=== PATIENT | male | born 1995 | race Two or more races ===

== ENCOUNTER 2019-11-28 15:24 | Emergency (ER) | payer SELFPAY ==
[~2019-11-28] VITALS: Ht 177.8 cm; Wt 72.0 kg
[2019-11-28 15:30] VITALS: BP 133/71
[2019-11-28 18:03] LABS: HEMATOCRIT. 42.3 % (42.0-52.0); HEMOGLOBIN. 14.4 g/dL (14.0-18.0); MEAN CORPUSCULAR HEMOGLOBIN 29.8 pg (28.0-32.0); MEAN CORPUSCULAR VOLUME 87.3 fL (80.0-94.0); PLATELET 303 x1000/uL (130-400); RED BLOOD CELL COUNT 4.85 mill/uL (4.7-6.1)
[2019-11-28 18:05] LABS: CHLORIDE 107 mEq/L (98-107)
[2019-11-28 19:08] LABS: PLATELET ESTIMATE NORMAL
== END 2019-11-28 17:57 | disposition home or self-care (01) ==
LOC: ER 15:24
DX: R53.1 Weakness (principal)
CPT/HCPCS: 36415; 80053; 82962; 84484; 85025; 99283

== ENCOUNTER 2020-06-09 14:59 | Inpatient (IN) | payer MEDICAID ==
[~2020-06-09] VITALS: Ht 160 cm; Wt 54.0 kg
[2020-06-09] MEDS ORDERED: SODIUM CHLORIDE 0.9% 1,000 ML IV ONE (15:30)
[2020-06-09] MEDS ORDERED: KETOROLAC 30MG/ML VIAL IV STA (15:30)
[2020-06-09] MEDS ORDERED: ONDANSETRON HCL 4MG/2ML INJ IV STA (15:30)
[2020-06-09 16:33] LABS: HEMATOCRIT. 45.5 % (42.0-52.0); HEMOGLOBIN. 15.2 g/dL (14.0-18.0); MEAN CORPUSCULAR HEMOGLOBIN 30.5 pg (28.0-32.0); MEAN CORPUSCULAR VOLUME 91.2 fL (80.0-94.0); MEAN PLATELET VOLUME 8.3 fl (7.4-10.4); PLATELET 317 x1000/uL (130-400); RED CELL DISTRIBUTION WIDTH 13.6 % (11.6-14.6)
[2020-06-09 16:36] LABS: CHLORIDE 104 mEq/L (98-107)
[2020-06-09 16:39] LABS: INR 1.2; PROTHROMBIN TIME 12.1 sec (9.6-11.0)
[2020-06-09 16:41] LABS: ETHANOL BLOOD < 10 mg/dL
[2020-06-09] MEDS ORDERED: SODIUM CHLORIDE 0.9% 100 ML IV ONE (17:00)
[2020-06-09 17:17] LABS: PLATELET ESTIMATE NORMAL
[2020-06-09] MEDS ORDERED: CEFTRIAXONE 1 G PREMIX 50 ML IV NR (20:15)
[2020-06-09 20:52] LABS: CLARITY URINE CLEAR (CLEAR); COLOR URINE ORANGE (YELLOW); KETONES URINE 1+ (NEGATIVE); LEUKOCYTE ESTERASE URINE NEGATIVE (NEGATIVE); NITRITE URINE NEGATIVE (NEGATIVE); OCCULT BLOOD URINE 3+ (NEGATIVE); PROTEIN URINE 2+ (NEGATIVE); SPECIFIC GRAVITY URINE 1.015 (1.005-1.030)
[2020-06-09 21:06] LABS: *AMPHETAMINES SCREEN URINE NEGATIVE (NEGATIVE)
[2020-06-09 21:07] LABS: *BARBITURATES SCREEN URINE NEGATIVE (NEGATIVE); *BENZODIAZEPINES SCREEN URINE NEGATIVE (NEGATIVE); *COCAINE SCREEN URINE NEGATIVE (NEGATIVE); CANNABINOID URINE SCREEN PRESUMTIVE POSITIVE (NEGATIVE); METHADONE URINE SCREEN NEGATIVE (NEGATIVE); PHENCYCLIDINE URINE SCREEN NEGATIVE (NEGATIVE)
[2020-06-09 21:09] LABS: OPIATES URINE SCREEN NEGATIVE (NEGATIVE)
[2020-06-09] MEDS ORDERED: BISACODYL 10MG SUPP PR NR (22:15)
[2020-06-09] MEDS ORDERED: LACTULOSE 20G/30ML UDC PO NR (22:15)
[2020-06-09] MEDS ORDERED: MORPHINE SULFATE 2 MG/ML CPJ (NOT FOR IM USE) IV PRN (22:15)
[2020-06-09] MEDS ORDERED: ONDANSETRON HCL 4MG/2ML INJ IV PRN (22:15)
[2020-06-09] MEDS ORDERED: MAGNESIUM CITRATE 300ML SOLUTION PO NR (22:15)
[2020-06-09] MEDS ORDERED: CEFTRIAXONE 1 G PREMIX 50 ML IV SCH (22:15)
[2020-06-09] MEDS ORDERED: NA PHOS,M-B/NA PHOS,DI-BA ENEMA 118ML PR PRN (22:15)
[2020-06-09 23:07] LABS: HEPATITIS B SURFACE ANTIGEN NEGATIVE
[2020-06-09] MEDS: SODIUM CHLORIDE 0.45% 1,000 ML IV SCH (23:22)
[2020-06-09 23:36] LABS: HEPATITIS A AB IGM NEGATIVE (NEGATIVE)
[2020-06-10] VITALS: BP_SYST 120; BP_SYST 136; BP_DIAS 70; BP_DIAS 73
[2020-06-10 04:00] VITALS: BP 98/53
[2020-06-10 06:48] LABS: HEMATOCRIT. 43.4 % (42.0-52.0); HEMOGLOBIN. 14.6 g/dL (14.0-18.0); MEAN CORPUSCULAR HEMOGLOBIN 30.6 pg (28.0-32.0); MEAN CORPUSCULAR VOLUME 90.9 fL (80.0-94.0); MEAN PLATELET VOLUME 7.8 fl (7.4-10.4); PLATELET 271 x1000/uL (130-400); RED BLOOD CELL COUNT 4.77 mill/uL (4.7-6.1); RED CELL DISTRIBUTION WIDTH 13.4 % (11.6-14.6)
[2020-06-10 06:51] LABS: CHLORIDE 107 mEq/L (98-107)
[2020-06-10 07:16] LABS: LDL CHOLESTEROL 33 mg/dL (5-100)
[2020-06-10 07:19] LABS: HDL CHOLESTEROL 46 mg/dL (40-59)
[2020-06-10 08:00] VITALS: BP 110/71
[2020-06-10] MEDS ORDERED: LACTULOSE 20G/30ML UDC PO SCH (09:00)
[2020-06-10] MEDS: FAMOTIDINE 20MG/2ML VIAL IV SCH (09:25)
[2020-06-10] MEDS: SODIUM CHLORIDE 0.45% 1,000 ML IV SCH (09:26)
[2020-06-10 12:00] VITALS: BP 124/59
[2020-06-10 12:49] LABS: PLATELET ESTIMATE NORMAL
[2020-06-10 15:42] LABS: CREATINE KINASE 14532 IU/L (39-308)
[2020-06-10 16:00] VITALS: BP 117/57
[2020-06-10 18:21] LABS: INR 1.3; PROTHROMBIN TIME 13.3 sec (9.6-11.0)
[2020-06-10 20:00] VITALS: BP 153/64
[2020-06-10 20:51] LABS: CREATINE KINASE 48052 IU/L (39-308)
[2020-06-10] MEDS ORDERED: CEFTRIAXONE 1,000 MG in DEXTROSE 5% WATER 50 ML IV SCH ×4 (21:00)
[2020-06-10] MEDS: SODIUM BICARBONATE 50 MEQ in SODIUM CHLORIDE 0.45% 1,000 ML IV SCH (21:11)
[2020-06-11] VITALS: BP 108/75
[2020-06-11 04:00] VITALS: BP 117/65
[2020-06-11 08:00] VITALS: BP 104/62
[2020-06-11] MEDS: SODIUM BICARBONATE 50 MEQ in SODIUM CHLORIDE 0.45% 1,000 ML IV SCH ×2 (08:27→19:01)
[2020-06-11] MEDS: FAMOTIDINE 20MG/2ML VIAL IV SCH (08:27)
[2020-06-11 10:36] LABS: HEMATOCRIT. 40.7 % (42.0-52.0); HEMOGLOBIN. 13.6 g/dL (14.0-18.0); MEAN CORPUSCULAR HEMOGLOBIN 30.4 pg (28.0-32.0); MEAN CORPUSCULAR VOLUME 90.8 fL (80.0-94.0); MEAN PLATELET VOLUME 8.4 fl (7.4-10.4); PLATELET 214 x1000/uL (130-400); RED BLOOD CELL COUNT 4.49 mill/uL (4.7-6.1); RED CELL DISTRIBUTION WIDTH 13.3 % (11.6-14.6)
[2020-06-11 10:43] LABS: CHLORIDE 106 mEq/L (98-107)
[2020-06-11 10:49] LABS: PHOSPHORUS 5.1 mg/dL (2.5-4.9)
[2020-06-11 12:00] VITALS: BP 127/69
[2020-06-11 14:15] LABS: PLATELET ESTIMATE NORMAL
[2020-06-11 14:38] LABS: CLARITY URINE CLOUDY (CLEAR); COLOR URINE YELLOW (YELLOW); KETONES URINE 1+ (NEGATIVE); LEUKOCYTE ESTERASE URINE TRACE (NEGATIVE); NITRITE URINE NEGATIVE (NEGATIVE); OCCULT BLOOD URINE 3+ (NEGATIVE); PROTEIN URINE 2+ (NEGATIVE); SPECIFIC GRAVITY URINE 1.012 (1.005-1.030); UROBILINOGEN URINE 0.2 E.U./dL (0.2-1.0)
[2020-06-11 16:00] VITALS: BP 133/64
[2020-06-11 18:05] VITALS: BP 133/64
[2020-06-13 13:07] LABS: *CREATININE RANDOM URINE 146.8 mg/dL (Not Estab.); MICROALBUMIN RANDOM URINE 645.3 ug/mL (Not Estab.)
== END 2020-06-11 19:58 | disposition short-term general hospital (02) | DRG 720 ==
LOC: ER 14:59 → 6EST 20:35 → ENRESERV 21:11
PROVIDERS: ADMIT Family Medicine; ATTEND Family Medicine
DX: A41.9 Sepsis, unspecified organism (principal); K72.00 Acute and subacute hepatic failure without coma; B17.9 Acute viral hepatitis, unspecified; E86.0 Dehydration; F12.90 Cannabis use, unspecified, uncomplicated; F31.9 Bipolar disorder, unspecified; K82.8 Other specified diseases of gallbladder; M62.82 Rhabdomyolysis; N17.0 Acute kidney failure with tubular necrosis; N18.9 Chronic kidney disease, unspecified; E78.5 Hyperlipidemia, unspecified; R74.0 Nonspecific elevation of levels of transaminase and lactic acid dehydrogenase [LDH]; E80.6 Other disorders of bilirubin metabolism; Z59.0 Homelessness; Z87.891 Personal history of nicotine dependence; E87.2 Acidosis
CPT/HCPCS: 36415; 74176; 76705; 80053; 80061; 80305; 80307; 80320; 81003; 82043; 82248; 82550; 82570; 83036; 83605; 83735; 83935; 84100; 84300; 84550; 85025; 86705; 86709; 86803; 87340; 93005; 96374; 99285; J0696; J1885; J2405; J3490; J7030; J7060; G0480